=== PATIENT | female | born 1995 | race African-American/Black ===

== ENCOUNTER 2020-06-19 02:38 | Outpatient (CLI) | payer OTHER, SELFPAY ==
[2020-06-19 19:47] LABS: SARS-CoV-2 RNA PCR Negative
== END 2020-06-19 02:39 | disposition home or self-care (01) ==
LOC: ANHCOVIDDT 02:39
PROVIDERS: Visit Provider Obstetrics & Gynecology
DX: Z01.812 Encounter for preprocedural laboratory examination (principal); Z20.828 Contact with and (suspected) exposure to other viral communicable diseases
CPT/HCPCS: 87635; C9803; U0003

== ENCOUNTER 2020-06-20 02:25 | Day surgery (SDC) | payer OTHER, SELFPAY ==
[2020-06-18 15:52] VITALS: BMI 22.8
--- NOTE | 2020-06-19 13:03 | WPDANESEPPF ---
Anes - Initial Pre Proc Eval Procedure: Operation Date: 06/20/20 09:00 Proposed Procedures p Suction Dilatation and Curettage - Delfin Ring MD Date/Time: 06/19/20 13:03 Surgeon: Delfin Ring MD Pre Op Diagnosis: missed AB Patient Data Age: 25 Gender: F Height: 1.63 m Weight: 60.33 kg Allergies Allergy/AdvReac Type Severity Reaction Status Date / Time No Known Allergies Allergy Verified 06/20/20 07:50 Home Medications Medication Instructions Recorded Confirmed Type No Home Medications 06/18/20 06/20/20 History Patient hx anesthesia problems: none Family hx anesthesia problems: none [facility] Past Medical History Medical History (Updated 06/20/20 @ 08:22 by Sam Man DO) Asthma Social History Social History Smoking status: Never smoker Living arrangements: with family Spiritual care concerns: No Anes - Eval Final PreProcedure Day of Procedure 06/19/20 13:03 Patient weight: normal Heart: regular rate and rhythm Lungs: clear to auscultation and normal air movement Airway: Mallampati scale class II Neurological: alert and oriented Last oral intake: >/= 8 hours ASA classification: II Emergent: no Anesthetic plan: proceed Anesthesia type and monitoring: general GIVS and standard monitoring Informed Consent: The patient's anesthetic plan and its attendant risks and benefits were discussed with the patient/family/POA. Questions were solicited and answers provided to the satisfaction of the patient/family/POA.
[2020-06-20 07:12] VITALS: BP 101/61; PULSE 93; RESP 18; TEMP 36.3; O2SAT 100
[2020-06-20] MEDS: LACTATED RINGERS 1,000 ML 30 ML IV CONT (07:30)
[2020-06-20] MEDS: ACETAMINOPHEN 500 MG TABLET 1000 MG PO (07:42)
--- NOTE | 2020-06-20 08:31 | P.HP_ITS ---
History of Present Illness History of Present Illness Consent: Risks, benefits, and alternatives have been discussed and questions answered. Patient agrees to proceed with procedure. Chief complaint: missed AB Narrative: Janet Hartmann is a 25 year old female primip at 10 weeks by lmp had first trimester bleeding ultrasound showed a 9 week sac without pole and internal septations. [facility] Past Medical History Medical History Asthma Social History Social History Smoking status: Never smoker Living arrangements: with family Spiritual care concerns: No Meds Home Medications and Allergies Home Medications Medication Instructions Recorded Confirmed Type No Home Medications 06/18/20 06/20/20 History Allergies Allergy/AdvReac Type Severity Reaction Status Date / Time No Known Allergies Allergy Verified 06/20/20 07:50 Vital Signs Vital Signs - 24 hr 06/20/20 07:12 Temperature 36.3 C L Pulse Rate 93 Respiratory Rate 18 Blood Pressure 101/61 Pulse Oximetry 100 Exam Const: General: no acute distress Cardio: Rate: regular rate Rhythm: regular rhythm GI: Inspection: normal to inspection : Bimanual exam- vagina & uterus: enlarged Other: cervix closed no blood present Assessment and Plan Assessment and plan (1) Missed : Code(s): O02.1 - Missed Status: Acute Assessment and Plan: scheduled for a suction dilation and curettage risk and benefits reviewed with patient in detail.
--- NOTE | 2020-06-20 08:39 | WPDHPUPDATE1 ---
History and Physical Update Update Date/Time: 06/20/20 08:39 History and Physical has been reviewed, including an updated exam of the patient. There are NO changes in the patient's condition. Risks, benefits, and alternatives have been discussed and questions answered. Patient agrees to proceed with procedure.
[2020-06-20] MEDS: LIDOCAINE HCL 1% LOCAL INJ 20 ML VIAL 10 ML INFILTRATE (09:06)
[2020-06-20 09:18] VITALS: BP 93/61; PULSE 73; RESP 16; O2SAT 99
[2020-06-20 09:50] VITALS: BP 104/61; PULSE 72; RESP 16
[2020-06-20 10:20] VITALS: BP 113/67; PULSE 72; RESP 16
--- NOTE | 2020-06-21 09:10 | PM.PROC ---
Procedure Note - Detailed Date of procedure: 06/21/20 Pre-op diagnosis: missed AB Post-op diagnosis: same Procedure performed: suction d and c Description of procedure: Patient presented to the operating room with IV running. She was prepared and draped in a normal sterile fashion. [place] speculum was placed in vagina. Cervix grasped with tenaculum and injected with 1% lidocaine in the 2 and 10 position. uterus was sounded to 10 cm. The cervix dilated with Herlinda dilator to an 9 and a 8mm curved curette was attached to suction and the contents of the uterus was evacuated in two passes. A sharp curettage was performed in all four quadrant and the device reintroduced removing remaining contents. The tenaculum sie was hemostatic and the instruments were removed. Patient taken to recovery in stable condition. Anesthesia: MAC and local Surgeon: Delfin Ring MD Estimated blood loss (mL): 100 Pathology: yes Disposition: observation
== END 2020-06-20 10:35 | disposition home or self-care (01) ==
PROVIDERS: PCP Nurse Practitioner; Visit Provider Obstetrics & Gynecology
PROC: (CPT 59820; principal; 2020-06-20 09:00)
DX: O02.1 Missed abortion (principal)
CPT/HCPCS: 59820; 36415; 85461; 88305; A9270; J2250; J2405; J2704; J3010; J7120

== ENCOUNTER 2021-04-01 10:16 | Outpatient (CLI) | payer OTHER, SELFPAY ==
--- NOTE | ~2021-04-01 | US_ITS ---
EXAMINATION: US OB /maternal detail DATE: 04/01/2021 11:08 INDICATION: anatomic survey. TECHNIQUE: Real-time ultrasound of the pelvis was performed. COMPARISON: None. FINDINGS: There is a single living fetus in vertex presentation. The placenta is anterior, 5.2 cm from the cer vix. heart rate is 166 beats per minute (bpm). The amniotic fluid index is 13.3 cm, which is no rmal. The following biometric data were obtained: Biparietal diameter (BPD): 4.5 cm; head circumference (HC): 16.9 cm; abdominal circumference (AC): 14 .3 cm; femur length (FL): 3.0 cm. These measurements are concordant. Estimated weight is 294 g +/- 44 g, which correlates with 91st percentile when 08/29/21 is used as estimated date of delivery. As single measurements, these parameters are each equal to the following estimated gestational ages w ith ranges of +/- 2 standard deviations: BPD: 19 weeks 3 days (17 weeks 5 days - 21 weeks 1 days). HC: 19 weeks 4 days (18 weeks 0 days - 21 weeks 0 days). AC: 19 weeks 4 days (17 weeks 4 days - 21 weeks 5 days). FL: 19 weeks 2 days (17 weeks 3 days - 21 weeks 0 days). estimated gestational age based solely on measurements from this exam is 19 weeks 3 days +/- 1 weeks 3 days. The cerebral ventricles, cerebellum, cisterna magna, nuchal fold, nose/lip, and visualized portions o f the spine are normal. The heart is normal. The diaphragm, stomach, kidneys, and bladder are normal. There are two umbilical arteries to yield a 3-vessel cord. The cord insertion is normal. IMPRESSION: 1. Single living fetus in vertex presentation. 2. Large for gestational age. Estimated weight is 294 g +/- 44 g, which correlates with 91st pe rcentile when 08/29/21 is used as estimated date of delivery. 3. Normal anatomic survey. Reviewed, dictated and finalized at location A. IMPRESSION: 1. Single living fetus in vertex presentation. 2. Large for gestational age. Estimated weight is 294 g +/- 44 g, which c orrelates with 91st percentile when 08/29/21 is used as estimated date of delive ry. 3. Normal anatomic survey.
== END 2021-04-01 10:17 | disposition home or self-care (01) ==
LOC: ANHIMG 10:21
PROVIDERS: PCP Nurse Practitioner; Visit Provider Obstetrics & Gynecology
DX: Z36.9 Encounter for antenatal screening, unspecified (principal); Z3A.00 Weeks of gestation of pregnancy not specified
CPT/HCPCS: 76805

== ENCOUNTER 2021-08-20 09:01 | Outpatient (CLI) | payer OTHER, SELFPAY ==
[2021-08-20 10:16] LABS: Basophils Percent Auto 0.4 % (0.2-1.2); Eosinophils Absolute Auto 0.1 K/mm3 (0-0.3); Eosinophils Percent Auto 0.9 % (0-4.4); Hematocrit 40.1 % (37.0-47.0); Hemoglobin 13.5 g/dL (12.0-15.0); Immature Granulocyte Absolute 0.06 K/mm3 (0.00-0.031); Immature Granulocyte Percent A 0.7 % (0-0.5); Lymphocytes Absolute Auto 2.53 K/mm3 (0.9-3.2); Lymphocytes Percent Auto 31.3 % (18.3-44.2); Mean Corpuscular HGB Conc 33.7 g/dl (32-36); Mean Corpuscular Hemoglobin 30.8 pg (26-34); Mean Corpuscular Volume 91.3 fl (80-100); Mean Platelet Volume 12.6 fl (7.4-10.4); Monocytes Absolute Auto 0.9 K/mm3 (0.1-0.6); Monocytes Percent Auto 11.3 % (2.6-8.5); Neutrophils Absolute Auto 4.5 K/mm3 (1.3-6.7); Neutrophils Percent Auto 55.4 % (45.5-73.1); Platelet Count Result 136 k/mm3 (150-375); Red Blood Count 4.39 M/mm3 (4.2-5.4); Red Cell Distribution Width 14.1 % (11.5-14.5); White Blood Count 8.1 K/mm3 (4.5-10.0)
[2021-08-21 09:53] LABS: Rapid Plasma Reagin Non-Reactive (NonReactive)
== END 2021-08-20 09:02 | disposition home or self-care (01) ==
LOC: ANHLAB 09:03
PROVIDERS: PCP Nurse Practitioner; Visit Provider Obstetrics & Gynecology Gynecology
DX: Z34.93 Encounter for supervision of normal pregnancy, unspecified, third trimester (principal); Z3A.00 Weeks of gestation of pregnancy not specified
CPT/HCPCS: 36415; 85025; 85055; 86592; 86850; 86900; 86901

== ENCOUNTER 2021-08-22 04:55 | Inpatient (IN) | payer OTHER, SELFPAY ==
[2021-08-22] VITALS (70 sets, daily range): BP systolic 85–127; BP diastolic 50–108; PULSE 52–246; RESP 16–20; TEMP 36.1–36.8; O2SAT 96–100; BMI 28.9
[2021-08-22] MEDS: LACTATED RINGERS 1,000 ML 125 ML IV CONT (05:25)
--- NOTE | 2021-08-22 05:28 | LDADM ---
This patient, Janet Hartmann, was admitted to Labor/Delivery/Recovery 120 on 08/22/21 at 04:55. Plans for labor, pain management and were discussed with patient. Patient/family oriented to hospital policies and general routines including ID bracelet, bed and alarms, visiting hours, pain management, procedures, bathroom and other care routines, personal items, smoking policy, room service/diet and guest tray routines, security routines, and visiting hours. Patient/Family are encouraged to report perceived risks to care and to ask questions if they do not understand what they are told or what they should do. See OBIX for further documentation.
--- NOTE | 2021-08-22 06:48 | WPDHPUPDATE1 ---
History and Physical Update Update Date/Time: 08/22/21 06:48 History and Physical has been reviewed, including an updated exam of the patient. There are NO changes in the patient's condition. Risks, benefits, and alternatives have been discussed and questions answered. Patient agrees to proceed with procedure.
--- NOTE | 2021-08-22 06:49 | P.HP_ITS ---
H&P: HPI History of Present Illness Date/Time: 08/22/21 06:49 Chief Complaint: breech Narrative: 26 yo at 39 wks with breech presentation confirmed today by u/s. otherwise uncomplicated. labs O+; Rubella immune; RPR -; Hiv- ; HepBSAg -. [facility] Past Medical History Medical History (Updated 08/22/21 @ 06:53 by Rose Irby MD) Asthma Missed Family History Family History (Updated 08/01/21 @ 12:46 by Keenan Garcia RN) Grandparent Breast cancer Social History Social History Smoking status: Never smoker Second hand tobacco smoke exposure: No Substance use: current Spiritual care concerns: No Meds Home Medications and Allergies Home Medications Medication Instructions Recorded Confirmed Type PNV cmb#95-ferrous fumarate-FA 1 tablet PO DAILY 08/01/21 08/01/21 History [] cetirizine [Zyrtec] 10 mg PO DAILY PRN 08/01/21 08/01/21 History cholecalciferol (vitamin D3) 125 mcg PO DAILY 08/01/21 08/01/21 History [Vitamin D3] ferrous sulfate [Iron (ferrous 325 mg PO DAILY 08/01/21 08/01/21 History sulfate)] Allergies Allergy/AdvReac Type Severity Reaction Status Date / Time No Known Allergies Allergy Verified 06/20/20 07:50 Vital Signs Vital Signs - 24 hr 08/22/21 06:06 Pulse Rate 81 Blood Pressure 127/74 Exam Const: General: comfortable GI: Inspection: other (gravid) GI Palp: No Tenderness to palpation present (GI) and Yes Other GI palpation findings present (FH 39 ) Auscultation: other (FHTs reactive) Assessment and Plan Assessment and plan (1) 39 weeks gestation of : Code(s): Z3A.39 - 39 weeks gestation of Status: Acute (2) Breech presentation: Code(s): O32.1XX0 - Maternal care for breech presentation, not applicable or unspecified Status: Acute Assessment and Plan: plan to proceed with LTCS
--- NOTE | 2021-08-22 06:51 | WPDANESEPPF ---
Anes - Initial Pre Proc Eval Procedure: Operation Date: 08/22/21 07:30 Proposed Procedures p Section - Rose Irby MD Date/Time: 08/22/21 06:51 Surgeon: Rose Irby MD Pre Op Diagnosis: C/S Patient Data Age: 26 Gender: F Height: 1.63 m Weight: 76.5 kg Last Vital Signs Pulse 81 08/22/21 06:06 BP 127/74 08/22/21 06:06 Allergies Allergy/AdvReac Type Severity Reaction Status Date / Time No Known Allergies Allergy Verified 06/20/20 07:50 Home Medications Medication Instructions Recorded Confirmed Type PNV cmb#95-ferrous fumarate-FA 1 tablet PO DAILY 08/01/21 08/01/21 History [] cetirizine [Zyrtec] 10 mg PO DAILY PRN 08/01/21 08/01/21 History cholecalciferol (vitamin D3) 125 mcg PO DAILY 08/01/21 08/01/21 History [Vitamin D3] ferrous sulfate [Iron (ferrous 325 mg PO DAILY 08/01/21 08/01/21 History sulfate)] Patient hx anesthesia problems: none Family hx anesthesia problems: none Results Review: All pre-operative results and documents have been reviewed as part of the pre-operative evaluation. [facility] Past Medical History Medical History (Updated 06/20/20 @ 08:35 by Delfin Ring MD) Asthma Missed Family History Family History (Updated 08/01/21 @ 12:46 by Keenan Garcia RN) Grandparent Breast cancer Social History Social History Smoking status: Never smoker Second hand tobacco smoke exposure: No Substance use: current Spiritual care concerns: No Anes - Eval Final PreProcedure Day of Procedure 08/22/21 06:51 Patient weight: overweight Heart: regular rate and rhythm Lungs: clear to auscultation and normal air movement Airway: Mallampati scale class II Neurological: alert and oriented Last oral intake: >/= 8 hours ASA classification: II Emergent: no Anesthetic plan: proceed Anesthesia type and monitoring: regional spinal Results Review: All pre-operative results and documents have been reviewed as part of the pre-operative evaluation. Informed Consent: The patient's anesthetic plan and its attendant risks and benefits were discussed with the patient/family/POA. Questions were solicited and answers provided to the satisfaction of the patient/family/POA.
[2021-08-22] MEDS: ceFAZolin 2 GM/D5W 50 ML 2 GM/50 ML BAG IVPB (06:57)
--- NOTE | 2021-08-22 07:49 | W.PM.PROC2 ---
Procedure Note - Detailed Date of Procedure 08/22/21 Pre-op Diagnosis Intrauterine at 39 weeks double footling breech presentation Post-op Diagnosis same Procedure Performed Primary low transverse section Surgeon Rose Irby MD Anesthesia spinal Findings Female in the double footling breech presentation weighing 6lb 1oz with 9 and 9 Apgars. Normal-appearing tubes, ovaries and uterus. Description of Procedure The patient was taken to the operating room and placed under anesthesia in the dorsal supine position with a leftward tilt. Once anesthesia was deemed adequate she was prepped and draped in the usual sterile fashion. Pfannenstiel skin incision was made with a scalpel and carried down to the underlying layer of fascia which was nicked in the midline. The incision was extended laterally using Germain scissors. Ochsner was used to tent the fascia which was then dissected off using sharp and blunt dissection. The rectus muscles were in the midline and the peritoneum tented and entered with Metzenbaum scissors. The incision was extended with blunt traction. The bladder blade is placed. The vesicouterine peritoneum was grasped with a Peon and entered with Metzenbaum. The incision was extended laterally and the bladder flap created digitally. The lower uterine segment was incised in a transverse fashion with the scalpel and extended laterally using blunt traction. The membranes are ruptured and clear fluid noted. Both feet are grasped and the infant delivered to this hips. The hips were then grasped and the rotated and the left arm delivered while splinting the humerus. The infant was rotated and the right arm was delivered while splinting the humerus. The infant is extended on the abdomen and the head delivered spontaneously. The cord was clamped and cut and the handed to the waiting nursery nurse. The placenta is removed manually due to cord avulsion. The uterus is cleared of all clots and debris and exteriorized. The uterine incision was closed using 0 Monocryl in a running locked fashion with the same trip same suture used to imbricate. There is a tear in the left broad ligament which resulted in bleeding from the angle. This was repaired from the posterior surface for better visualization. Hemostasis was obtained. The uterus was returned to the abdomen and the cul-de-sac and gutters are irrigated. The bleeding area was again inspected including the posterior and anterior surfaces. The fascia was then closed using 0 Vicryl in a running fashion. Subcutaneous tissues are irrigated and made hemostatic using Bovie cautery. Skin is closed using 4-0 Vicryl in a subcuticular fashion with Dermaflex placed over the incision. Sponge, needle, and instrument counts are correct per the OR staff. Estimated Blood Loss 395 Drains Yes (De Santiago catheter) Packing No Pathology none sent Complications No immediate complications Condition stable Disposition floor
--- NOTE | 2021-08-22 07:54 | PM.OBDSVD ---
DS: Admitting Diagnosis Discharge Date 08/25/21 Admitting Diagnosis Intrauterine in the double footling breech presentation at 39 weeks DS: Discharge Diagnosis Discharge Diagnosis (1) Breech presentation: Code(s): O32.1XX0 - Maternal care for breech presentation, not applicable or unspecified Status: Acute (2) delivery delivered: Code(s): O82 - Encounter for delivery without indication Status: Acute OB - DS: Summary OB Procedures : Ultrasound OB Procedures Intrapartum: low cervical, transverse OB Procedures: : None Peripartum Data Infant Delivery Method: Section Procedures: Procedures Operation Date: 08/22/21 07:30 Actual Procedure Side Surgeon p Section Rose Irby MD complications: none Status at Discharge Functional status at discharge: independent ambulation Overall status at discharge: patient is progressing back to baseline Time Spent with Patient Time attestation: Total time spent providing and/or coordinating discharge services: Discharge Plan Discharge Attending physician on discharge: Rose Irby Discharging Clinician: Brant Howell Patient Disposition: Home, Self-Care Activity: may shower, may drive after 2 weeks and pelvic rest Diet: regular Wound Care Instructions: incision open to air Discharge Instructions: Education: Mom and Baby Guide Given to: Mother Follow-Up: Call your delivering provider's office for an appointment to be seen in: 1 Week Mom and baby should come to the [facility] for the follow-up appointment. Appointment Date/Time: August 26, 2021 at 9:00 am What to expect at your follow-up visit: Physical Assessment Call [phone] if you are unable to keep your appointment time. BREAST CARE: * Wear a snug supportive bra. * For engorgement discomfort: Breast Feeding: * Apply warm moist washcloths * Express milk as needed to relieve engorgement * Wear loose clothing * For sore nipples: * Identify correct latch-on * Apply warm moist washcloths before and after nursing * Air dry nipples after nursing * May apply Lansinoh cream to nipples ABDOMINAL INCISION: * Allow incision to air dry * Do NOT use lotions for powders on your incision * When showering, allow soap and water to run over the incision, but do not wash incision PERINEAL CARE: * Until bleeding stops, use your angel luis bottle after urinating * Change your pad frequently throughout the day * You may take sitz baths several times a day (fill your bathtub with warm water and soak for 20 minutes.) Do NOT bathe in the water * No tub baths until seen by your physician - You may shower ACTIVITY: * Rest as much as possible. * Do not exercise or lift anything heavier than your baby (such as laundry or other children.) * Avoid stairs or driving as much as possible. * Do not put anything into the vagina. No douching, tampons, or sexual activity until seen by physician. NOTIFY PHYSICIAN IF YOU HAVE ANY QUESTIONS OR IF ANY OF THE FOLLOWING SYMPTOMS OCCUR: * If your incision becomes red, swollen, or more painful than what you have experienced in the hospital. * If your vaginal bleeding becomes foul smelling. * If your vaginal bleeding becomes more heavy than a period or if your bleeding changes from pink to bright red. However, you may pass an occasional walnut-sized clot once or twice for the first week . * If you experience a sharp, shooting pain in you calves. * If you discover a hard, reddened area on your breast or if you experience flu-like symptoms. DIET: * Eat regular, well-balanced meals. * Drink plenty of fluids daily. If , drink to thirst. Patient Instructions: Antibiotic Form Stand Alone Forms: General Discharge Information Follow-up/Referrals: Rose Irby,
[2021-08-22] MEDS: OXYTOCIN 30 UNITS/NS 500 ML 30 UNITS/500 ML BAG 125 UNITS IV CONT (08:42)
--- NOTE | 2021-08-22 11:56 | OBPPTRN ---
1050-Patient transferred to post room #288 via stretcher. Support person present. Oriented to unit, room, information board, rooming in, admission packet and security measures. Patient verbalizes understanding.
[2021-08-22] MEDS: KETOROLAC 30 MG/ML VIAL (*BKC) IV PUSH ×2 (12:21→19:44)
[2021-08-22] MEDS: DEXTROSE 5%/0.45% SOD CHL 1,000 ML 125 ML IV CONT (12:33)
--- NOTE | 2021-08-22 13:40 | PC.NURSE ---
1230 - Consulted with patient, reviewed infant feeding cues, frequencies, duration of feedings, feeding elimination flow sheet, and signs of adequate intake. Demonstrated stimulation techniques to wake for feeding. Assisted with to breast. Reviewed positioning/alignment, holding breast and asymmetrical latch on. was able to latch effectively. nursed eagerly, with steady draws and occasional swallowing noted. Reviewed signs of a correct latch, effective nursing and suck swallow ratio. was able to maintain latch without discomfort to mother. Effective latch was reviewed with assistance of the mom/baby guide and handout visual. Nipple care reviewed. Infant placed skin to skin on mother. Reviewed watching for early feeding cues to know when to feed baby again. Education regarding feeding infant 8-12 times in 24 hours and initiate feeding from the start of the last feeding. Instructed mother to call out for RN assistance if she is unable to latch for feeding or she has discomfort with nursing. Mother voiced understanding of information shared. Reported to primary RN.
[2021-08-22] MEDS: DOCUSATE SODIUM 100 MG CAPSULE PO (16:11)
[2021-08-23 04:15] VITALS: BP 115/76; PULSE 76; RESP 16; TEMP 37; O2SAT 100
[2021-08-23] MEDS: IBUPROFEN 600 MG TABLET PO ×3 (04:15→21:14)
[2021-08-23 04:52] LABS: Basophils Absolute Auto 0.1 K/mm3 (0.0-0.1); Basophils Percent Auto 0.3 % (0.2-1.2); Eosinophils Percent Auto 0.2 % (0-4.4); Hematocrit 34.6 % (37.0-47.0); Hemoglobin 11.7 g/dL (12.0-15.0); Immature Granulocyte Absolute 0.14 K/mm3 (0.00-0.031); Immature Granulocyte Percent A 0.6 % (0-0.5); Lymphocytes Percent Auto 9.7 % (18.3-44.2); Mean Corpuscular HGB Conc 33.8 g/dl (32-36); Mean Corpuscular Hemoglobin 31.5 pg (26-34); Mean Corpuscular Volume 93.3 fl (80-100); Mean Platelet Volume 13.2 fl (7.4-10.4); Monocytes Absolute Auto 1.5 K/mm3 (0.1-0.6); Neutrophils Absolute Auto 17.7 K/mm3 (1.3-6.7); Neutrophils Percent Auto 82.2 % (45.5-73.1); Platelet Count Result 125 k/mm3 (150-375); Red Blood Count 3.71 M/mm3 (4.2-5.4); Red Cell Distribution Width 14.1 % (11.5-14.5); White Blood Count 21.6 K/mm3 (4.5-10.0)
[2021-08-23] MEDS: ACETAMINOPHEN 325 MG TABLET 650 MG PO (07:21)
[2021-08-23] MEDS: DOCUSATE SODIUM 100 MG CAPSULE PO ×3 (07:21→16:34)
[2021-08-23] MEDS: MULTIVIT/MIN/PREN/FOL AC/IRON TABLET 1 TAB PO (07:21)
[2021-08-23 07:25] VITALS: BP 105/65; PULSE 74; RESP 16; TEMP 36.7; O2SAT 99
[2021-08-23 08:00] VITALS: PULSE 74; RESP 16; O2SAT 99
--- NOTE | 2021-08-23 11:54 | P.PNOB_ITS ---
OB - PN: Subj Subjective Date/time seen: 08/23/21 11:54 Patient comments: no complaints, pain well controlled and tolerating diet [place] baby status: doing well OB - PN: Obj Data Labs CBC & Chem 7: 08/23/21 04:29 Labs: Laboratory Results - last 24 hr 08/23/21 04:29 WBC 21.6 H RBC 3.71 L Hgb 11.7 L Hct 34.6 L MCV 93.3 MCH 31.5 MCHC 33.8 RDW 14.1 Plt Count 125 L MPV 13.2 H Immature Gran % (Auto) 0.6 H Neut % (Auto) 82.2 H Lymph % (Auto) 9.7 L [place] % (Auto) 7.0 Eos % (Auto) 0.2 Baso % (Auto) 0.3 Lymph # (Auto) 2.10 [place] # (Auto) 1.5 H Eos # (Auto) 0.0 Baso # (Auto) 0.1 Abs Immat Gran (auto) 0.14 H Absolute Neuts (auto) 17.7 H Absolute Nucleated RBC 0.0 Nucleated RBC % 0.0 % Immature Plt Fraction 19.0 H OB - PN A/P Plan day: 1 Plan: routine care and other (plans micronor) Time Spent With Patient Time: Total time spent is greater than 50% in coordination of care (as documented) at patient's floor/unit and/or counseling patient: Exam Narrative: inc c/d/i : Bimanual exam- vagina & uterus: other (Uterus firm, nt @U)
[2021-08-23] MEDS: HYDROcodone/acetaminophen (*CRX) 5-325 MG TABLET 1 TAB PO ×3 (12:23→21:14)
[2021-08-23] MEDS: SIMETHICONE 80 MG TAB.CHEW PO (12:23)
--- NOTE | 2021-08-23 14:02 | WPDANLDPN2 ---
Anes-Prog Note L&D Date/Time: 08/23/21 14:02 Comfortable throughout: section Neuraxial method: spinal Epidural/Spinal procedure site: clean & non-tender Neuro status: Neuro function grossly intact. Cardiovascular status: normal Respiratory status: normal Airway patency: baseline Mental status: baseline Post-Op hydration status: normal Vital Signs: Last Vital Signs Temp 36.7 C 08/23/21 07:25 Pulse 74 08/23/21 07:25 Resp 16 08/23/21 07:25 BP 105/65 08/23/21 07:25 Pulse Ox 99 08/23/21 07:25 Pain score (VAS): 2/10 I/O: Intake & Output 08/22/21 08/23/21 08/23/21 23:59 07:59 15:59 Intake Total 1900 Output Total 2150 650 Balance -250 -650 Post-procedural complaints: none Patient feedback: Patient satisfied with anesthetic care.
--- NOTE | 2021-08-23 14:02 | WPDANLDNPN2 ---
Anes-Prog Note L&D-Neuraxial Date/Time: 08/23/21 14:02 Neuraxial medications: intrathecal PF morphine Opiod-related complaints: pruritis moderate, treatment effective Patient feedback: Patient satisfied with post-operative pain management.
--- NOTE | 2021-08-23 14:57 | PC.NURSE ---
late entry 0730 -Mother verbalizes she is able to independently latch with appropriate positioning/alignment. She denies any nipple discomfort, is feeding as required and waking to feed if needed. is currently meeting outcomes for weight, output, jaundice and feeding frequencies. Mother states she has not been able to latch for the last feeding. RN assisted mother with infant to breast football position on the left breast. Reviewed positioning/alignment, holding breast and asymmetrical latch on. was able to latch correctly. nursed eagerly, with steady draws and occasional swallowing noted. Reviewed signs of a correct latch, effective nursing and suck swallow ratio. Infant was able to maintain latch without discomfort to mother. Nipple care reviewed. Instructed mother to call out for RN assistance if she is unable to latch for feeding or she has discomfort with nursing. Parents voiced understanding to watch for feeding cues for responsive feeding and to place infant skin to skin every 2-3 hours (8-12 times in 24 hours) Reviewed resources using the visual handout for latch and the Mom/Baby guide. Parents will call out for future feedings if there is discomfort with or doesn't latch. Reported to primary RN.
[2021-08-23 19:13] VITALS: BP 108/68; PULSE 68; RESP 18; TEMP 36.4; O2SAT 100
[2021-08-24] MEDS: SIMETHICONE 80 MG TAB.CHEW PO ×3 (04:26→21:10)
[2021-08-24] MEDS: IBUPROFEN 600 MG TABLET PO ×3 (04:26→19:02)
[2021-08-24] MEDS: HYDROcodone/acetaminophen (*CRX) 5-325 MG TABLET 1 TAB PO ×3 (04:26→19:02)
[2021-08-24 07:00] VITALS: BP 105/73; PULSE 78; RESP 18; TEMP 36.2
--- NOTE | 2021-08-24 07:49 | PM.OBDSVD ---
DS: Admitting Diagnosis Discharge Date 08/25/2021 Admitting Diagnosis OB - DS: Summary OB Procedures : None OB Procedures Intrapartum: OB Procedures: : None Peripartum Data Procedures: Procedures Operation Date: 08/22/21 07:30 Actual Procedure Side Surgeon p Section Rose Irby MD Time Spent with Patient Time attestation: Total time spent providing and/or coordinating discharge services: Discharge Plan Discharge Attending physician on discharge: Rose Irby Discharging Clinician: Brant Howell Patient Disposition: Home, Self-Care Activity: may shower, december drive after 2 weeks and pelvic rest Diet: regular Wound Care Instructions: incision open to air Patient Instructions: Antibiotic Form Stand Alone Forms: General Discharge Information Follow-up/Referrals: Rose Irby MD [Physician] - 1 Week Discharge Medications: New hydrocodone-acetaminophen 5-325 mg tablet 1 tablet PO Q4H PRN (Reason: pain) Qty: 30 RF: 0 norethindrone (contraceptive) 0.35 mg tablet 0.35 mg PO DAILY Qty: 84 RF: 3 Continued cetirizine [Zyrtec] 10 mg Tablet 10 mg PO DAILY PRN (Reason: Allergy Symptoms) RF: 0 cholecalciferol (vitamin D3) [Vitamin D3] 125 mcg (5,000 unit) Tablet 125 mcg PO DAILY RF: 0 PNV cmb#[id number]-ferrous fumarate-FA [] 28 mg iron- 800 mcg Tablet 1 tablet PO DAILY RF: 0 Discontinued ferrous sulfate [Iron (ferrous sulfate)] 325 mg (65 mg iron) Tablet 325 mg PO DAILY RF: 0 Date of admission: 08/22/21 04:55 Primary Care Provider: Vijay,Rosalind Baltazar Admitting Provider: Rose Irby Attending physician on admission: Rose Irby Condition: Stable
[2021-08-24] MEDS: MULTIVIT/MIN/PREN/FOL AC/IRON TABLET 1 TAB PO ×2 (08:41→16:48)
[2021-08-24] MEDS: DOCUSATE SODIUM 100 MG CAPSULE PO ×2 (08:41→16:48)
[2021-08-24 23:50] VITALS: BP 112/70; PULSE 95; RESP 16; TEMP 36.7; O2SAT 98
[2021-08-25] MEDS: HYDROcodone/acetaminophen (*CRX) 5-325 MG TABLET 1 TAB PO (04:24)
[2021-08-25] MEDS: SIMETHICONE 80 MG TAB.CHEW PO ×2 (04:24→10:52)
[2021-08-25] MEDS: IBUPROFEN 600 MG TABLET PO (04:25)
[2021-08-25 08:00] VITALS: BP 117/84; PULSE 83; RESP 18; TEMP 36.1
[2021-08-25] MEDS: DOCUSATE SODIUM 100 MG CAPSULE PO (10:52)
[2021-08-25] MEDS: MULTIVIT/MIN/PREN/FOL AC/IRON TABLET 1 TAB PO (10:52)
[2021-08-25] MEDS: ACETAMINOPHEN 325 MG TABLET 650 MG PO (10:52)
[2021-08-26 08:59] VITALS: BP 125/81; PULSE 84; RESP 20; TEMP 37.1; O2SAT 100
== END 2021-08-25 12:25 | disposition home or self-care (01) | DRG 788 ==
LOC: ANHLDR 07:55 → ANHOB2 08-23 15:30 → ANHLDR 08-27 07:59 → ANHOB2 08-27 07:59
PROVIDERS: Admitting Provider Obstetrics & Gynecology Gynecology; PCP Nurse Practitioner; Visit Provider Obstetrics & Gynecology
PROC: 10D00Z1 Extraction of Products of Conception, Low, Open Approach (ICD-10-PCS; CPT 59514; principal; 2021-08-22 07:30)
DX: O32.8XX0 Maternal care for other malpresentation of fetus, not applicable or unspecified (principal); Z3A.39 39 weeks gestation of pregnancy; Z37.0 Single live birth; O69.89X0 Labor and delivery complicated by other cord complications, not applicable or unspecified
CPT/HCPCS: 36415; 85025; 85055; A9270; J0131; J0690; J1885; J2274; J2370; J2405; J2590; J7120